=== PATIENT | male | born 1960 | race Two or more races ===

== ENCOUNTER 2022-09-11 18:37 | Emergency (ER) | payer SELFPAY ==
[~2022-09-11] VITALS: Ht 167.6 cm; Wt 63.5 kg
--- NOTE | 2022-09-11 18:50 | NUR ---
stop drinking two weeks ago , now feeling ill and dizzy
--- NOTE | 2022-09-11 18:50 | NUR ---
DR BECK AT BEDSIDE
[2022-09-11] MEDS ORDERED: Thiamine 100 MG/ML VIAL ONE (19:04)
--- NOTE | 2022-09-11 19:04 | NUR ---
PATIENT BROUGHT TO CT SCAN
[2022-09-11] MEDS: Thiamine 100 MG in IV D5W 50 ML IV SCH (19:22)
[2022-09-11] MEDS: IV NS 0.9% 1,000 ML BAG IV ONE (19:22)
[2022-09-11 19:56] LABS: BASOPHILS % (AUTO) 0.4 % (0.0-2.0); HEMATOCRIT 33 % (39-51); LYMPHOCYTES # (AUTO) 0.3 K/uL (0.8-4.8); LYMPHOCYTES % (AUTO) 10.1 % (20.0-44.0); MEAN CORPUSCULAR HGB CONC 34 g/dl (31.0-36.0); MEAN CORPUSCULAR VOLUME 94 fL (80-96); MONOCYTES % (AUTO) 30.8 % (2.0-12.0); NEUTROPHILS % (AUTO) 58.7 % (43.0-81.0); PLATELET COUNT (AUTO) 169 K/uL (150-450); RED BLOOD CELL COUNT(AUTO) 3.47 MIL/uL (4.5-6.0); WHITE BLOOD COUNT (AUTO) 3.4 K/uL (4.3-11.0)
[2022-09-11 19:57] LABS: ALANINE AMINOTRANSFERASE 40 U/L (12-78); ALCOHOL, BLOOD < 3 mg/dL (0-0); ALKALINE PHOSPHATASE 93 U/L (46-116); ASPARTATE AMINOTRANSFERASE 54 U/L (15-37); BILIRUBIN,DIRECT 0.2 mg/dL (0.0-0.2); BILIRUBIN,TOTAL 0.5 mg/dL (0.2-1.0); CALCIUM, SERUM 8.5 mg/dL (8.5-10.1); CARBON DIOXIDE 24 mmol/L (21-32); CHLORIDE 92 mmol/L (98-107); CREATININE 1.1 mg/dL (0.6-1.3); GLUCOSE 118 mg/dL (74-106); POTASSIUM 4.2 mmol/L (3.5-5.1); SODIUM SERUM 124 mmol/L (136-145); TOTAL PROTEIN, SERUM 7.4 g/dL (6.4-8.2); UREA NITROGEN, BLOOD 29 mg/dL (7-18)
[2022-09-11 19:59] LABS: SERUM AMMONIA < 10 umol/L (11-32)
[2022-09-11 20:22] VITALS: BP 101/55
[2022-09-11 20:22] LABS: THYROID STIMULATING HORMONE 2.767 uIU/mL (0.358-3.74)
[2022-09-11 20:23] LABS: LYMPHOCYTES % (MANUAL) 14 % (16-48); MONOCYTES % (MANUAL) 24 % (0-11.0); NEUTROPHILS % (MANUAL) 62 (42-76)
--- NOTE | 2022-09-11 20:23 | NUR ---
Patient discharged to home in stable condition. Written and verbal after care instructions given. Patient verbalizes understanding of instruction.IV removed. Catheter intact and site benign. Pressure and 4x4 applied to site. No bleeding noted.
== END 2022-09-11 20:23 | disposition home or self-care (01) ==
LOC: ER 18:43
DX: M54.50 Low back pain, unspecified (principal); E86.0 Dehydration
CPT/HCPCS: 99285; 96365; 93005; 71045; 72131; 82140; 85025; 80048; 80076; 85007; 36415; 84443; 80320; J7060; J7030; J3411; G0480